=== PATIENT | female | born 1985 | race Caucasian/White ===

== ENCOUNTER 2024-12-25 05:47 | Inpatient (IN) ==
--- NOTE | 2024-12-18 16:19 | Anesthesiology Consultation ---
Date of Service December 18, 2024 Assessment & Plan (1) Encounter for pre-operative examination: Chart Review Chart Review: entry level manager initiated -Infectious Disease screening: Per PAT nursing assessment on 12/18/24. No known infectious disease contacts in past 10 days or current infectious disease symptoms. No recent travel outside the country. History Surgery Operation Date: 12/25/24 09:20 Proposed Procedures p Primary Section in LD - Matthew Tinsley MD Height/Weight Height: 5 ft 5 in Weight: 117.934 kg Allergies Allergy/AdvReac Type Severity Reaction Status Date / Time No Known Allergies Allergy Verified 12/18/24 15:10 Medications Home Medications Medication Instructions Recorded Confirmed Last Taken aspirin 81 mg tablet 81 mg PO DAILY 12/18/24 12/18/24 Unknown ferrous sulfate 325 mg (65 mg 325 mg PO DAILY 12/18/24 12/18/24 Unknown iron) capsule,extended release hydroxyzine HCl 10 mg tablet 10 mg PO DAILY PRN Anxiety 12/18/24 12/18/24 Unknown omeprazole 20 mg tablet,delayed 20 mg PO QAM 12/18/24 12/18/24 Unknown release prenat.vits,jose guadalupe,avk-udaj-sdzyn 1 tab PO DAILY 12/18/24 12/18/24 Unknown Past Medical History Medical History Acid reflux Anemia oral iron only Anxiety 2nd trimester only as per patient Gestational diabetes diet controlled History of hypertension 2nd trimester only as per patient Sleep apnea Mild - CPAP doesn't use regularly Past Surgical History Surgical History History of wisdom tooth extraction Social History Smoking Status: Never smoker Do You Dip or Chew Tobacco: No Hx Alcohol Use: No Hx Substance Use: No substance use type: does not use Testing Electrocardiogram Date: 09/19/24 Findings: + NSR @ (92bpm) Normal EKG per cardio Echocardiogram Date: 09/19/24 EF: 60-64% LV Function: normal RWMA: + none Other Findings: + diastolic dysfunction (Grade I ); no LVH Valvular Disease: + no significant valvular disease
[2024-12-25] MEDS ORDERED: DEXAMETHASONE SOD INJ 4 MG/ML VIAL ONE (06:15)
[2024-12-25] MEDS ORDERED: ONDANSETRON INJ 2 MG/ML 2 ML VIAL ONE (06:15)
[2024-12-25] MEDS ORDERED: PHENYLEPHRINE HCL 25 MG/250 ML NSS IV ONE (06:15)
[2024-12-25] MEDS ORDERED: OXYTOCIN 10 UNITS/ML VIAL ONE (06:15)
[2024-12-25] MEDS ORDERED: MoRPHine SULFATE PF 1 MG/ML 10 ML AMP/VIAL ONE (06:15)
[2024-12-25] MEDS: LACTATED RINGER'S 1,000 ML IV SCH ×2 (06:24→07:13)
[2024-12-25 06:30] LABS: Hematocrit (blood only) 37.4 % (37.0-47.0); Hemoglobin 12.4 g/dl (12.0-16.0); Immature Granulocytes # (auto) 0.03 K/uL (0.01-0.20); Immature Granulocytes % (auto) 0.3 %; Mean Corpuscular Hemoglobin 26.4 pg (25.0-34.0); Mean Corpuscular Volume 79.7 fL (80.0-100.0); Platelet Count 273 K/uL (130-400); RDW Standard Deviation 53.1 fL (36.4-46.3); Red Blood Count 4.69 M/uL (4.20-5.40); White Blood Count 9.37 K/ul (4.8-10.8)
[2024-12-25] MEDS: ACETAMINOPHEN 500 MG TAB PO SCH (06:30)
[2024-12-25] MEDS ORDERED: LACTATED RINGER'S 500 ML IV PRN (10:37)
[2024-12-25] MEDS ORDERED: MoRPHine SULFATE PF 1 MG/ML 10 ML AMP/VIAL INT SPINAL ONE (10:37)
[2024-12-25] MEDS ORDERED: ONDANSETRON INJ 2 MG/ML 2 ML VIAL IV PRN (10:37)
[2024-12-25] MEDS ORDERED: NALOXONE HCL 1 MG in SODIUM CHLORIDE 0.9% 1,000 ML IV PRN (10:37)
[2024-12-25] MEDS ORDERED: diphenhydrAMINE 50 MG/ML VIAL IV PRN (10:37)
[2024-12-25] MEDS ORDERED: PROMETHAZINE 6.25 MG/50.25 ML BAG IV PRN (10:37)
[2024-12-25] MEDS ORDERED: NALOXONE HCL 0.4 MG/1 ML VIAL/CARP IV PRN (10:37)
[2024-12-25] MEDS ORDERED: NALBUPHINE HCL INJ 10 MG/ML AMP IV PRN (10:37)
[2024-12-25] MEDS ORDERED: NALOXONE HCL 0.08 MG in SYRINGE 1.8 ML IV PRN (10:37)
[2024-12-25] MEDS ORDERED: SODIUM CHLORIDE 0.9% 1,000 ML IV SCH (10:45)
[2024-12-25] MEDS ORDERED: NO NARCOTICS OR SEDATIVES SCH (10:45)
[2024-12-25] MEDS ORDERED: DC INTRASPINAL MORPHINE SCH (10:45)
[2024-12-25] MEDS: CITRIC ACID/SODIUM CITRATE 15 ML UDC PO SCH (11:31)
[2024-12-25] MEDS: ceFAZolin 3000MG 3,000 MG/72.5 ML BAG IV SCH (11:36)
[2024-12-25] MEDS ORDERED: SUCCINYLCHOLINE CHLORIDE 20 MG/ML 10 ML VIAL IV ONE (12:13)
[2024-12-25] MEDS ORDERED: ROCURONIUM BROMIDE 10 MG/ML 5 ML VIAL IV ONE ×2 (12:27→12:47)
[2024-12-25] MEDS ORDERED: SUGAMMADEX SODIUM 200 MG/2 ML VIAL IV ONE (12:30)
[2024-12-25] MEDS: OXYTOCIN 10 UNITS/ML VIAL IM ONE (12:42)
[2024-12-25] MEDS ORDERED: KETOROLAC 30 MG/ML VIAL ONE (13:06)
[2024-12-25] MEDS ORDERED: BENZOCAINE 20% SPRY 85 APPLN/85 GM CAN EXT PRN (13:20)
[2024-12-25] MEDS ORDERED: HYDROCORTISONE ACETATE 25 MG SUPP PR PRN (13:20)
[2024-12-25] MEDS ORDERED: SENNA 8.6 MG TAB PO PRN (13:20)
[2024-12-25] MEDS ORDERED: CALCIUM CARBONATE 500 MG CHEWABLE TAB PO PRN (13:20)
[2024-12-25] MEDS ORDERED: PROMETHAZINE 12.5 MG/50.5 ML BAG IV PRN (13:20)
[2024-12-25] MEDS ORDERED: LACTATED RINGER'S 1,000 ML IV SCH (13:30)
--- NOTE | 2024-12-25 13:32 | Operative Report ---
Post Operative Report Pre & Post Diagnosis Operation Date: 12/25/24 07:30 Pre-Op Diagnosis: 1. Primary c/section breech Post-Op Diagnosis: same I identified the patient and participated in the time-out.: Yes Procedure Operation Date: 12/25/24 07:30 <No data on this case meets the specified criteria> Primary low segment section Surgeon Matthew Tinsley MD Valve Tester Danni Martin Estimated Blood Loss 436 Findings Consistent with Post-Op Diagnosis Ranjit breech presentation. Tight nuchal cord x 2. Normal pelvis Specimens Placenta Drains None Anesthesia Type General Complications None Indications Primary breech presentation. Confirmed by bedside ultrasound prior to Description of Procedure Patient was brought to the OR table correctly identified by armband and conversation. Spinal anesthesia was administered. Perineum and vagina were painted with Betadine Varela catheter was inserted aseptically into the bladder connected to gravity drainage. Compression stockings were applied. Patient was then positioned on the operating room table. Lower abdomen was painted with an alcohol-based sterilizing solution. Solution was allowed to dry for 3 minutes. Patient was then draped in usual sterile fashion. We tested the spinal anesthesia it was not adequate. We reposition the patient gave some more time tested again was not adequate. At this point anesthesia suggested we go to general. General anesthesia was administered. We a Pfannenstiel was then made and carried down to the anterior fascia by sharp dissection. Hemostasis was secured by electrocauterization. Fascia was incised transversely from the underlying muscle by blunt and sharp dissection. Recti muscles were in the midline supposing peritoneum which was carefully raised and entered. Bladder blade was placed in the pelvis. Exposing the lower uterine segment. Incision was made above the vesicouterine fold with the scissors. Lower uterine segment was then scored with a knife. Then entered bluntly with the scissors. Clear amniotic fluid was seen at this time. Operators hand was started in the uterine cavity. A breech extraction was performed by delivering each foot. Then the bottom. Then the chest. Then reducing each arm over the chest. Then with fundal pressure delivering the head which had a tight nuchal cord x 2. Nuchal cord was untangled. Cord was allowed to pulse. Then cord was clamped cut and the infant was handed off to the picture painter Dr. Cavanaugh who was present scrubbed at the time of the delivery. Cord blood was taken. The placenta was removed manually. Uterus tubes and ovaries were brought out through the incision. 10 units of Pitocin was injected into the myometrium. Ring forceps were used to delineate the lower uterine defect. The muscular layer was approximated with a continuous interlocking suture of heavy chromic. A layer was placed over this and with stitches in a horizontal fashion of heavy duty Vicryl. This covered up the muscular layer. There was 1 [id number] suture that had to be placed in the midline to control the bleeding after the approximation was done. Hemostasis good we then restored the integrity of the vesicouterine fold. This was done with a running 3-0 Chromic Gut suture. Pelvis was then cleansed of all blood clots and debris. Pelvis was washed clean. Uterus tubes and ovaries were reinserted into the abdominal cavity. Peritoneum was closed with a mattress suture chromic catgut. Recti muscles were approximated with interrupted [id number]-[id number]-vyurn suture chromic catgut. Attention was focused on the fascia. The angles of the fascial defect were grabbed with a straight Robe on each side. The fascia was then approximated with a continuous interlocking suture of heavy-duty Vicryl with wide lateral bites. Fascia was approximated from the right side to the middle. And then from the left side to the middle. Subcu was then washed clean skin edges were freed up with the electric knife. Then a subcu suture of plain was used approximate the deep tissue. And then wilbur were used approximate the skin edges. Patient T alannah procedure well left the OR in good condition. I attest to the content of the Intraoperative Record and any orders documented therein. Any exceptions are noted below. library assistant was necessary for exposure and safe surgery in this patient with a breech presentation and general anesthesia.
[2024-12-25] MEDS: DIPHTHER/TETAN/PERTUS Vaccine (Tdap, Adol/Adult) 0.5mL IM ONE (13:58)
[2024-12-25] MEDS: OXYTOCIN 20 UNITS/LR 1,002 ML IV SCH (14:03)
--- NOTE | 2024-12-25 14:26 | Anesthesiology Progress Note ---
Date of Service December 25, 2024 Anesthesia Post Procedure Vital Signs Vital Signs: Temp Pulse Resp BP Pulse Ox 12/25/24 14:21 69 99 12/25/24 14:16 18 12/25/24 14:16 67 129/74 100 12/25/24 14:11 74 100 12/25/24 14:08 74 143/83 H 12/25/24 14:06 18 12/25/24 14:06 70 100 12/25/24 14:01 71 99 12/25/24 13:56 18 12/25/24 13:56 100 12/25/24 13:56 69 12/25/24 13:56 64 164/82 H 12/25/24 13:51 76 100 12/25/24 13:46 18 12/25/24 13:46 100 12/25/24 13:46 77 12/25/24 13:46 93 H 165/87 H 12/25/24 13:41 76 100 12/25/24 13:36 16 12/25/24 13:36 79 169/94 H 100 12/25/24 13:31 90 100 12/25/24 13:26 97.9 F 16 12/25/24 13:26 100 12/25/24 13:26 97 H 12/25/24 13:26 101 H 141/94 H 12/25/24 10:13 98.8 F 83 20 167/83 H 12/25/24 05:58 90 144/86 H 12/25/24 05:56 98.4 F 20 Pain Intensity Abdomen: Pain Intensity: 2 Transfer of Care Handoff Completed per policy Notes Mental Status: alert / awake / arousable and participated in evaluation Patient Amnestic to Procedure: Yes Nausea / Vomiting: adequately controlled Pain: adequately controlled Airway Patency, RR, SpO2: stable & adequate BP & HR: stable & adequate Hydration State: stable & adequate Neuraxial Anesthesia: was administered and sensory block is resolving Anesthetic Complications: no major complications apparent and Pt Satisfied with anesthetic care
[2024-12-25] MEDS: HYDROmorphone INJ 0.5 MG/0.5 ML SYR IV PRN (15:22)
[2024-12-25] MEDS: KETOROLAC 30 MG/ML VIAL IV SCH (20:22)
[2024-12-25] MEDS: ACETAMINOPHEN 325 MG TAB PO SCH (20:22)
[2024-12-25] MEDS: DOCUSATE SODIUM 100 MG CAP PO SCH (20:22)
[2024-12-25] MEDS: SIMETHICONE 80 MG CHEW PO SCH (20:22)
[2024-12-26] MEDS ORDERED: HYDROmorphone INJ 0.5 MG/0.5 ML SYR IV PRN (04:38)
[2024-12-26] MEDS ORDERED: ONDANSETRON INJ 2 MG/ML 2 ML VIAL IV PRN (04:38)
[2024-12-26] MEDS ORDERED: diphenhydrAMINE Capsule 25 MG CAP PO PRN (04:38)
[2024-12-26] MEDS ORDERED: diphenhydrAMINE 50 MG/ML VIAL IV PRN (04:38)
[2024-12-26] MEDS ORDERED: ZOLPIDEM TARTRATE 5 MG TAB PO PRN (04:38)
[2024-12-26 07:01] LABS: Hematocrit (blood only) 29.6 % (37.0-47.0); Hemoglobin 9.8 g/dl (12.0-16.0); Immature Granulocytes # (auto) 0.05 K/uL (0.01-0.20); Immature Granulocytes % (auto) 0.4 %; Mean Corpuscular Hemoglobin 26.5 pg (25.0-34.0); Mean Corpuscular Volume 80.0 fL (80.0-100.0); Platelet Count 215 K/uL (130-400); RDW Standard Deviation 54.4 fL (36.4-46.3); Red Blood Count 3.70 M/uL (4.20-5.40); White Blood Count 11.15 K/ul (4.8-10.8)
[2024-12-26] MEDS: FERROUS SULFATE 325 MG TAB PO SCH (07:33)
[2024-12-26] MEDS: PRENATAL VITAMIN 1 TAB PO SCH (07:33)
--- NOTE | 2024-12-26 09:17 | Obstetrical Progress Note ---
Date of Service December 26, 2024 Assessment & Plan Admission and Anticipated Discharge Date Admission Date: December 25, 2024 Subjective Patient is seen and examined. She feels well, no complaints. Pain is under control with oral meds. Ambulating without dizziness Voiding without difficulty Tolerating regular diet with out N&V Flatus neg Bleeding is minimal No fever/ chills/ CP/ SOB/ N&V/ Leg pain Breast feeding without problems Vital Signs Temp Pulse Resp BP Pulse Ox O2 Del Method 12/26/24 07:40 36.8 C 79 19 116/78 97 Room Air 12/26/24 04:28 18 97 12/26/24 04:28 36.7 C 68 18 106/71 97 Room Air 12/26/24 02:11 16 96 12/26/24 00:00 18 98 12/26/24 00:00 37 C 68 18 121/71 98 Room Air 12/25/24 23:00 16 99 12/25/24 22:00 16 97 Lab Results 12/25/24 12/25/24 12/26/24 Range/Units 06:02 06:26 06:26 WBC 9.37 11.15 H (4.8-10.8) K/ul RBC 4.69 3.70 L (4.20-5.40) M/uL Hgb 12.4 9.8 L (12.0-16.0) g/dl Hct 37.4 29.6 L (37.0-47.0) % MCV 79.7 L 80.0 (80.0-100.0) fL MCH 26.4 26.5 (25.0-34.0) pg MCHC 33.2 33.1 (32.0-36.0) g/dL RDW Std Deviation 53.1 H 54.4 H (36.4-46.3) fL RDW Coeff of Johnnie 18.5 H 18.8 H (11.5-14.5) % Plt Count 273 215 (130-400) K/uL MPV 11.3 11.1 (9.4-12.4) fL Immature Gran % (Auto) 0.3 0.4 % Neut % (Auto) 66.8 71.3 % Lymph % (Auto) 21.8 19.9 % [place] % (Auto) 9.9 7.1 % Eos % (Auto) 1.0 0.9 % Baso % (Auto) 0.2 0.4 % Neut # (Auto) 6.26 7.95 H (1.40-6.50) K/uL Lymph # (Auto) 2.04 2.22 (1.20-3.40) K/uL [place] # (Auto) 0.93 H 0.79 H (0.11-0.59) K/uL Eos # (Auto) 0.09 0.10 (0.00-0.50) K/uL Baso # (Auto) 0.02 0.04 (0.00-0.20) K/uL Immature Gran # (Auto) 0.03 0.05 (0.01-0.20) K/uL POC Glucose 79 (70-99) mg/dl Treponema pallidum Ab Negative (Negative) Blood Type AB Negative AB Negative Antibody Screen NEGATIVE Cancelled PE: General: Alert, orientedx3, NAD CVS: S1S2 RRR Lungs; CTAB Abd: soft, NT, ND, BS+, fundus firm, below Umbilicus Incision/ Dressing: Clean, dry, intact Perineum intact, Lochia rubra minimal Ext; NT, no edema AP: 39 yo s/p C Section, pod# 1 VSS Afebrile doing well Continue routine postop care Encourage ambulation, PO intake All questions were answered Results & Data Vital Signs (Past 12 Hours) Vital Signs Temp Pulse Resp BP Pulse Ox O2 Del Method 12/26/24 07:40 36.8 C 79 19 116/78 97 Room Air 12/26/24 04:28 18 97 12/26/24 04:28 36.7 C 68 18 106/71 97 Room Air 12/26/24 02:11 16 96 12/26/24 00:00 18 98 12/26/24 00:00 37 C 68 18 121/71 98 Room Air 12/25/24 23:00 16 99 12/25/24 22:00 16 97
[2024-12-26] MEDS ORDERED: KETOROLAC 30 MG/ML VIAL IV PRN (13:20)
[2024-12-26] MEDS: FAMOTIDINE 20 MG TAB PO SCH (13:28)
[2024-12-26] MEDS ORDERED: IBUPROFEN 600 MG TAB PO SCH ×3 (13:30→19:30)
[2024-12-26] MEDS ORDERED: Nursing to Pharmacy Communication SCH (13:45)
[2024-12-26] MEDS: IBUPROFEN 600 MG TAB PO SCH (14:17)
[2024-12-27 06:32] LABS: Hematocrit (blood only) 29.6 % (37.0-47.0); Hemoglobin 9.9 g/dl (12.0-16.0)
--- NOTE | 2024-12-27 08:19 | Obstetrical Progress Note ---
Date of Service December 27, 2024 Assessment & Plan Admission and Anticipated Discharge Date Admission Date: December 25, 2024 Subjective Patient is seen and examined. She feels well, no complaints. Pain is under control with oral meds. Ambulating without dizziness Voiding without difficulty Tolerating regular diet with out N&V Flatus once yesterday Bleeding is minimal No fever/ chills/ CP/ SOB/ N&V/ Leg pain Breast feeding without problems Vital Signs Temp Pulse Pulse Resp BP BP Pulse Ox 12/27/24 04:44 36.7 C 86 16 133/85 95 12/26/24 19:00 135/87 12/26/24 18:56 36.7 C 87 18 98 12/26/24 11:45 37.2 C 78 18 113/74 98 12/26/24 10:54 37.2 C 78 18 113/74 98 O2 Del Method 12/27/24 04:44 Room Air 12/26/24 19:00 12/26/24 18:56 Room Air 12/26/24 11:45 Room Air 12/26/24 10:54 Lab Results 12/25/24 12/25/24 12/26/24 Range/Units 06:02 06:26 06:26 WBC 9.37 11.15 H (4.8-10.8) K/ul RBC 4.69 3.70 L (4.20-5.40) M/uL Hgb 12.4 9.8 L (12.0-16.0) g/dl Hct 37.4 29.6 L (37.0-47.0) % MCV 79.7 L 80.0 (80.0-100.0) fL MCH 26.4 26.5 (25.0-34.0) pg MCHC 33.2 33.1 (32.0-36.0) g/dL RDW Std Deviation 53.1 H 54.4 H (36.4-46.3) fL RDW Coeff of Johnnie 18.5 H 18.8 H (11.5-14.5) % Plt Count 273 215 (130-400) K/uL MPV 11.3 11.1 (9.4-12.4) fL Immature Gran % (Auto) 0.3 0.4 % Neut % (Auto) 66.8 71.3 % Lymph % (Auto) 21.8 19.9 % [place] % (Auto) 9.9 7.1 % Eos % (Auto) 1.0 0.9 % Baso % (Auto) 0.2 0.4 % Neut # (Auto) 6.26 7.95 H (1.40-6.50) K/uL Lymph # (Auto) 2.04 2.22 (1.20-3.40) K/uL [place] # (Auto) 0.93 H 0.79 H (0.11-0.59) K/uL Eos # (Auto) 0.09 0.10 (0.00-0.50) K/uL Baso # (Auto) 0.02 0.04 (0.00-0.20) K/uL Immature Gran # (Auto) 0.03 0.05 (0.01-0.20) K/uL POC Glucose 79 (70-99) mg/dl Treponema pallidum Ab Negative (Negative) Blood Type AB Negative AB Negative Antibody Screen NEGATIVE Cancelled Screen Negative (Negative) 12/27/24 Range/Units 05:53 WBC (4.8-10.8) K/ul RBC (4.20-5.40) M/uL Hgb 9.9 L (12.0-16.0) g/dl Hct 29.6 L (37.0-47.0) % MCV (80.0-100.0) fL MCH (25.0-34.0) pg MCHC (32.0-36.0) g/dL RDW Std Deviation (36.4-46.3) fL RDW Coeff of Johnnie (11.5-14.5) % Plt Count (130-400) K/uL MPV (9.4-12.4) fL Immature Gran % (Auto) % Neut % (Auto) % Lymph % (Auto) % [place] % (Auto) % Eos % (Auto) % Baso % (Auto) % Neut # (Auto) (1.40-6.50) K/uL Lymph # (Auto) (1.20-3.40) K/uL [place] # (Auto) (0.11-0.59) K/uL Eos # (Auto) (0.00-0.50) K/uL Baso # (Auto) (0.00-0.20) K/uL Immature Gran # (Auto) (0.01-0.20) K/uL POC Glucose (70-99) mg/dl Treponema pallidum Ab (Negative) Blood Type Antibody Screen Screen (Negative) PE: General: Alert, orientedx3, NAD CVS: S1S2 RRR Lungs; CTAB Abd: soft, NT, ND, BS+, fundus firm, below Umbilicus Incision: Clean, dry, intact Perineum intact, Lochia rubra minimal Ext; NT, no edema AP: 39 yo s/p C Section, pod# 2 VSS Afebrile doing well Continue routine postop care Encourage ambulation, PO intake All questions were answered D/C home this afternoon or tomorrow am, depending on bowel functions Results & Data Vital Signs (Past 12 Hours) Vital Signs Temp Pulse Resp BP Pulse Ox O2 Del Method 12/27/24 04:44 36.7 C 86 16 133/85 95 Room Air
[2024-12-27 10:26] VITALS: RESP 18
[2024-12-27] MEDS: MAGNESIUM HYDROXIDE SUSP 30 ML UDC PO PRN (13:34)
[2024-12-27] MEDS: IBUPROFEN 600 MG TAB PO PRN (13:34)
[2024-12-27] MEDS: ACETAMINOPHEN 325 MG TAB PO PRN (19:24)
--- NOTE | 2024-12-28 10:11 | Obstetrical Progress Note ---
Date of Service December 28, 2024 Assessment & Plan Admission and Anticipated Discharge Date Admission Date: December 25, 2024 Subjective Patient is seen and examined. She feels well, no complaints. Pain is under control with oral meds. Ambulating without dizzinesss Voiding without difficulty Tolerating regular diet with out N&V Flatus + BM + Bleeding is minimal No fever/ chills/ CP/ SOB/ N&V/ Leg pain breast feeding without problems Vital Signs Temp Pulse Pulse Resp BP Pulse Ox O2 Del Method 12/27/24 23:40 37.0 C 83 18 135/85 96 Room Air 12/27/24 20:26 36.7 C 87 18 132/84 97 Room Air 12/27/24 14:41 36.7 C 98 H 98 H 18 131/81 97 Room Air Lab Results 12/25/24 12/25/24 12/26/24 Range/Units 06:02 06:26 06:26 WBC 9.37 11.15 H (4.8-10.8) K/ul RBC 4.69 3.70 L (4.20-5.40) M/uL Hgb 12.4 9.8 L (12.0-16.0) g/dl Hct 37.4 29.6 L (37.0-47.0) % MCV 79.7 L 80.0 (80.0-100.0) fL MCH 26.4 26.5 (25.0-34.0) pg MCHC 33.2 33.1 (32.0-36.0) g/dL RDW Std Deviation 53.1 H 54.4 H (36.4-46.3) fL RDW Coeff of Johnnie 18.5 H 18.8 H (11.5-14.5) % Plt Count 273 215 (130-400) K/uL MPV 11.3 11.1 (9.4-12.4) fL Immature Gran % (Auto) 0.3 0.4 % Neut % (Auto) 66.8 71.3 % Lymph % (Auto) 21.8 19.9 % [place] % (Auto) 9.9 7.1 % Eos % (Auto) 1.0 0.9 % Baso % (Auto) 0.2 0.4 % Neut # (Auto) 6.26 7.95 H (1.40-6.50) K/uL Lymph # (Auto) 2.04 2.22 (1.20-3.40) K/uL [place] # (Auto) 0.93 H 0.79 H (0.11-0.59) K/uL Eos # (Auto) 0.09 0.10 (0.00-0.50) K/uL Baso # (Auto) 0.02 0.04 (0.00-0.20) K/uL Immature Gran # (Auto) 0.03 0.05 (0.01-0.20) K/uL POC Glucose 79 (70-99) mg/dl Treponema pallidum Ab Negative (Negative) Blood Type AB Negative AB Negative Antibody Screen NEGATIVE Cancelled Screen Negative (Negative) 12/27/24 Range/Units 05:53 WBC (4.8-10.8) K/ul RBC (4.20-5.40) M/uL Hgb 9.9 L (12.0-16.0) g/dl Hct 29.6 L (37.0-47.0) % MCV (80.0-100.0) fL MCH (25.0-34.0) pg MCHC (32.0-36.0) g/dL RDW Std Deviation (36.4-46.3) fL RDW Coeff of Johnnie (11.5-14.5) % Plt Count (130-400) K/uL MPV (9.4-12.4) fL Immature Gran % (Auto) % Neut % (Auto) % Lymph % (Auto) % [place] % (Auto) % Eos % (Auto) % Baso % (Auto) % Neut # (Auto) (1.40-6.50) K/uL Lymph # (Auto) (1.20-3.40) K/uL [place] # (Auto) (0.11-0.59) K/uL Eos # (Auto) (0.00-0.50) K/uL Baso # (Auto) (0.00-0.20) K/uL Immature Gran # (Auto) (0.01-0.20) K/uL POC Glucose (70-99) mg/dl Treponema pallidum Ab (Negative) Blood Type Antibody Screen Screen (Negative) PE: General: Alert, orientedx3, NAD CVS: S1S2 RRR Lungs; CTAB Abd: soft, NT, ND, BS+, fundus firm, below Umbilicus Incision: Clean, dry, intact Perineum intact, Lochia rubra minimal Ext; NT, no edema AP: 39 yo s/p C Section, pod# 3 VSS Afebrile doing well Continue routine postop care Encourage ambulation, PO intake All questions were answered D/C home , f/u in office Results & Data Vital Signs (Past 12 Hours) Vital Signs Temp Pulse Resp BP Pulse Ox O2 Del Method 12/27/24 23:40 37.0 C 83 18 135/85 96 Room Air
[2024-12-28 10:43] VITALS: TEMP 98.1; O2SAT 97
[2024-12-28 10:50] VITALS: BP 142/86; PULSE 98
--- NOTE | 2024-12-31 14:28 | Coding Query ---
CODING QUERY To promote full compliance with coding requirements relating to patient care, provider participation is requested in all cases of assembler musical instruments uncertainty. Please assist us with the question(s) below: Coding Question(s): Please document weeks of gestation 39 weeks 2 days Physician's Response(s): Thank you Enid Narvaez Principal Diagnosis: "that condition established after study, to be chiefly responsible for occasioning the admission of the patient to the hospital for care." Co-Existing Principal Diagnosis: "when two or more diagnoses equally meet the criteria for principal diagnosis as determined by the circumstances of admission, diagnostic work up, and/or therapy provided, and the Alphabetic Index, Tabular List, or another coding guideline does not provide sequencing direction, any one of the diagnoses may be sequenced first." "When the physician has documented what appears to be a current diagnosis in the body of the record, but has not included the diagnosis in the final diagnostic statement, the physician should be asked whether the diagnosis should be added." (Source [facility] 2 QTR90. p3-4) RADHA
--- NOTE | 2025-01-10 09:35 | Discharge Summary ---
Date of Service January 10, 2025 Admission HPI Per Admitting Provider Patient was admitted for primary section due to breech presentation. Gestation were 39 weeks 2 days. Bedside ultrasound was done to confirm breech. Patient was taken to the OR she underwent primary low segment section with a breech extraction. Estimated blood loss was about 500 mL. Postoperatively she remained afebrile. On the third postoperative day she was ambulating well eating well pain controlled. She was discharged to be followed in the home and office. Hemoglobin at this time and stabilized at 9.8. Discharge Data Consultations 12/25/24 05:44 Consult Anesthesiology Stat Procedures Performed Operation Date: 12/25/24 07:30 Actual Procedures p Primary Section with of a live male child - Matthew Tinsley MD Hospital Course (1) Postoperative pain: Plan care
== END 2024-12-28 13:30 | disposition home or self-care (01) | DRG 788 ==
LOC: 4S1 05:47 → EDSTATUS 09:20 → 4E2 16:10